=== PATIENT | female | born 1960 | race Caucasian/White ===

== ENCOUNTER 2019-12-04 11:13 | Outpatient (CLI) | payer BC, SELFPAY ==
--- NOTE | 2019-12-04 11:16 | ECG_ITS ---
Measurements Intervals [place] Rate: 77 P: 64 IN: 177 QRS: 47 QRSD: 85 T: 59 QT: 377 QTc: 429 Interpretive Statements SINUS RHYTHM BASELINE ARTIFACT- I, II, III, AVR, AVL, AVF BORDERLINE ECG Electronically Signed On 12-04-2019 11:40:59 SALES FLOOR ASSOCIATE by Ankush Otto D.O.
== END 2019-12-04 11:14 | disposition home or self-care (01) ==
LOC: ANHSURGERY 11:16
PROVIDERS: PCP Nurse Practitioner Family; Visit Provider Surgery
DX: I10 Essential (primary) hypertension (principal); K40.90 Unilateral inguinal hernia, without obstruction or gangrene, not specified as recurrent; R94.31 Abnormal electrocardiogram [ECG] [EKG]
CPT/HCPCS: 36415; 86850; 86900; 86901; 93005

== ENCOUNTER 2019-12-19 01:06 | Day surgery (SDC) | payer BC, SELFPAY ==
[2019-11-28 12:49] VITALS: BMI 28.3
[2019-12-19] VITALS (10 sets, daily range): BP systolic 130–140; BP diastolic 71–87; PULSE 76–97; RESP 12–20; TEMP 36.2–36.5; O2SAT 92–100
--- NOTE | 2019-12-19 08:26 | WPDANESEPP ---
Anes - Eval Pre Procedure Procedure: Operation Date: 12/19/19 10:30 Proposed Procedures p Laparoscopic Left Inguinal Hernia Repair with Mesh, Davinci Assisted - Victor Hugo Smith DO Date/Time: 12/19/19 08:26 Surgeon: Martín Smith Pre Op Diagnosis: Left Inguinal Hernia Patient Data Age: 59 Gender: F Height: 5 ft 3 in Weight: 72.57 kg Allergies Allergy/AdvReac Type Severity Reaction Status Date / Time levofloxacin Allergy Unknown VOMITING Verified 11/28/19 12:50 Home Medications Medication Instructions Recorded Confirmed Type lisinopril 10 mg tablet 10 mg PO DAILY 10/23/19 11/28/19 History Vitamin D3 1 tablet PO DAILY 11/28/19 11/28/19 History albuterol sulfate 2.5 mg INHALATION Q6H PRN 11/28/19 11/28/19 History cyanocobalamin (vitamin B-12) 1,000 mcg PO DAILY 11/28/19 11/28/19 History [Vitamin B-12] EC12/04/19 SR rate 77 : patient denies (s/p hysterectomy) Patient hx anesthesia problems: none Family hx anesthesia problems: none PMFSH Past Medical History Medical History (Updated 12/19/19 @ 08:26 by Katty Harvey CRNA) Anxiety History of blood transfusion History of kidney stones History of ovarian cyst HTN (hypertension) Migraines Mitral valve prolapse Osteoarthritis Overweight (BMI 25.0-29.9) Plantar fascia syndrome Surgical History Surgical History (Updated 12/19/19 @ 08:26 by Katty Harvey CRNA) H/O ovarian cystectomy X 3 History of endometrial ablation History of hysterectomy Social History Social History Smoking status: Never smoker Alcohol intake: never Exam Day of Procedure 12/19/19 08:26
--- NOTE | 2019-12-19 09:09 | WPDANESEFPP ---
Anes - Eval Final PreProcedure Day of Procedure 12/19/19 09:09 Patient weight: overweight Heart: regular rate and rhythm Lungs: clear to auscultation Airway: Mallampati scale class II Neurological: alert and oriented Last oral intake: >/= 8 hours ASA classification: III Emergent: no Anesthetic plan: proceed Anesthesia type and monitoring: general ETT and standard monitoring Informed Consent: The patient's anesthetic plan and its attendant risks and benefits were discussed with the patient/family/POA. Questions were solicited and answers provided to the satisfaction of the patient/family/POA.
[2019-12-19] MEDS: LACTATED RINGERS 1,000 ML 30 ML IV CONT ×3 (09:20→14:52)
--- NOTE | 2019-12-19 10:06 | PM.IMHP ---
H&P: HPI History of Present Illness Chief complaint: Left Inguinal Hernia Narrative: Emy Ruano is a 59 year old female who presents with left groin pain for the past several months. She has also been recently experiencing some right groin pain, but does not notice a bulge. A CT of her abdomen and pelvis had been performed and this showed evidence of a left inguinal hernia. She also has a recent finding of a coagulopathy that has been treated by Dr. Barber. She now presents for elective hernia repair. Review of Systems Review of Systems: All systems reviewed & are unremarkable except as noted in HPI and below PMFSH Past Medical History Medical History Anxiety History of blood transfusion History of kidney stones History of ovarian cyst HTN (hypertension) Migraines Mitral valve prolapse Osteoarthritis Overweight (BMI 25.0-29.9) Plantar fascia syndrome Surgical History Surgical History H/O ovarian cystectomy X 3 History of endometrial ablation History of hysterectomy Family History Family History Father Heart disease Stage 4 chronic kidney disease Mother Diabetes mellitus Heart disease Unknown Diabetes mellitus Heart disease Cerebrovascular accident Kidney disorder Social History Social History Smoking status: Never smoker Alcohol intake: never Meds Home Medications and Allergies Home Medications Medication Instructions Recorded Confirmed Type lisinopril 10 mg tablet 10 mg PO DAILY 10/23/19 12/19/19 History Vitamin D3 1 tablet PO DAILY 11/28/19 12/19/19 History albuterol sulfate 2.5 mg INHALATION Q6H PRN 11/28/19 12/19/19 History cyanocobalamin (vitamin B-12) 1,000 mcg PO DAILY 11/28/19 12/19/19 History [Vitamin B-12] Allergies Allergy/AdvReac Type Severity Reaction Status Date / Time levofloxacin Allergy Unknown VOMITING Verified 12/19/19 08:59 Vital Signs Vital Signs - 24 hr 12/19/19 09:22 Temperature 36.5 C Pulse Rate 76 Respiratory Rate 20 Blood Pressure 130/76 Pulse Oximetry 100 Exam Const: General: no acute distress Eyes: General: appearance normal, both eyes and all related structures Neck: Neck: supple and no JVD Resp: Effort & Inspection: normal respiratory effort Auscultation: clear to auscultation bilaterally Cardio: Rate: regular rate Rhythm: regular rhythm GI: GI Palp: Yes Soft to palpation, No Tenderness to palpation present (GI) and No Guarding due to palpation present (GI) Other: Small reducible left inguinal hernia, no palpable right inguinal hernia Assessment and Plan Assessment and plan (1) Inguinal hernia of left side without obstruction or gangrene: Code(s): K40.90 - Unilateral inguinal hernia, without obstruction or gangrene, not specified as recurrent Status: Acute Assessment and Plan: I have recommended laparoscopic left inguinal hernia repair with mesh, da Yas assisted. I have discussed the procedure, risks, benefits, and alternatives with the patient. All questions answered. No changes since last seen in office.
[2019-12-19] MEDS: ceFAZolin 2 GM/D5W 50 ML 2 GM/50 ML BAG IVPB (10:32)
[2019-12-19] MEDS: BUPIVACAINE/EPINEPHRINE 0.5% 30 ML VIAL INFILTRATE (10:34)
--- NOTE | 2019-12-19 11:29 | SUR.OPER ---
PRO GYMNASIUM TEACHER MESH LOT [id number], EXP 2022-09-06M LEFT, PRO GYMNASIUM TEACHER MESH LOT [id number], EXP 2022-08-06 RIGHT INGUINAL HERNIAS. DIPPED IN NS PRIOR TO INSERTION.
--- NOTE | 2019-12-19 12:34 | PM.PROC ---
Procedure Note - Detailed Date of procedure: 12/19/19 Pre-op diagnosis: Left Inguinal Hernia Post-op diagnosis: other (Bilateral inguinal hernia) Procedure performed: Laparoscopic bilateral inguinal hernia repair with Progrip mesh, da Yas assisted Description of procedure: Procedure as well as risks, benefits, and alternatives were discussed with the patient. Written consent was obtained and placed in chart prior to procedure. Patient was brought back to surgical suite. She was placed supine on operating table. Time-out was done to confirm patient and procedure. She was then intubated by Anesthesia Department. Her abdomen was prepped and draped in sterile fashion using chlorhexidine prep. 0.5% bupivacaine with epinephrine was infiltrated at each location for incision. A 12 millimeter transverse incision was made just superior to the umbilicus using a 15 blade scalpel. Blunt dissection was carried out down to the linea alba. A vertical incision was made at the linea alba using a 15 blade scalpel. The peritoneum was then bluntly entered. A 12 millimeter trocar was inserted and carbon dioxide insufflation was used to create a pneumoperitoneum. A camera was inserted and the abdominal cavity was inspected. The patient was placed in slight Trendelenburg position. An 8 millimeter incision was made on the right lateral abdomen and an 8 millimeter trocar was inserted under direct visualization. Another 8 millimeter incision was made in the left lateral abdomen and an 8 millimeter trocar was inserted under direct visualization. The robotic arms were brought up to the patient's bedside and secured to the ports. The camera and instruments were inserted. I then moved over to the robotic console and took control of the camera and instruments. After careful inspection of the abdominal cavity, I began scoring the peritoneum along the left lower quadrant using scissors with electrocautery. The preperitoneal plane was entered and this was carefully dissected caudally along the inferior epigastric vessels. Careful dissection with scissors with electrocautery and blunt dissection was used to continue this dissection. I dissected far enough laterally to allow for mesh placement, and also dissected medially to identify the pubic arch and Viet's ligament. The hernia sac was identified and carefully dissected posteriorly. The cord contents were also identified and the peritoneum was carefully dissected far enough posteriorly to allow for mesh placement. Once an adequate pocket was created, I then placed the mesh within the preperitoneal pocket and carefully unfolded it. The mesh was centered on the hernia defect with adequate overlap circumferentially. The inferior edge of the mesh was inspected to ensure that it was far enough away from the peritoneal edge. The mesh appeared in proper position overlying the entire myopectineal orifice. The peritoneum was then closed over the mesh using a 3-0 V-lock running absorbable suture. I then began scoring the peritoneum along the right lower quadrant using scissors with electrocautery. The preperitoneal plane was entered and this was carefully dissected caudally along the inferior epigastric vessels. Careful dissection with scissors with electrocautery and blunt dissection was used to continue this dissection. I dissected far enough laterally to allow for mesh placement, and also dissected medially to identify the pubic arch and Viet's ligament. The hernia sac was identified and carefully dissected posteriorly. The cord contents were also identified and the peritoneum was carefully dissected far enough posteriorly to allow for mesh placement. Once an adequate pocket was created, I then placed the mesh within the preperitoneal pocket and carefully unfolded it. The mesh was centered on the hernia defect with adequate overlap circumferentially. The inferior edge of the mesh was inspected to ensure that it was far enough away from
== END 2019-12-19 16:20 | disposition home or self-care (01) ==
PROVIDERS: PCP Nurse Practitioner Family; Visit Provider Surgery
PROC: 8E0Y4CZ Robotic Assisted Procedure of Lower Extremity, Percutaneous Endoscopic Approach (ICD-10-PCS; CPT 49650; principal; 2019-12-19 10:30)
DX: K40.20 Bilateral inguinal hernia, without obstruction or gangrene, not specified as recurrent (principal); I10 Essential (primary) hypertension; I34.1 Nonrheumatic mitral (valve) prolapse; M19.90 Unspecified osteoarthritis, unspecified site; F41.9 Anxiety disorder, unspecified
CPT/HCPCS: 49650; S2900; 36415; 86850; 86900; 86901; A9270; C1781; J0131; J0690; J1100; J2250; J2370; J2405; J2710; J3010; J7030; J7120

== ENCOUNTER 2020-10-17 11:34 | Emergency (ER) | payer OTHER, SELFPAY ==
--- NOTE | ~2020-10-17 | CT_ITS ---
EXAMINATION: CT brain wo con DATE: 10/17/2020 13:14 INDICATION: Right-sided forehead swelling TECHNIQUE: Computed tomography (CT) of the head was performed without intravenous contrast. The mA wa s adjusted according to patient size. Iterative reconstruction technique was employed. Exam dose: 60 5.33 mGy-cm total exam DLP. COMPARISON: 01/26/2013 CT brain FINDINGS: Examination is mildly limited by motion artifact. No intracranial mass lesion or hemorrhage or cerebrovascular accident is evident. There is no midline shift or mass effect. Normal ventricular size. No fracture or bone destruction of the cranial vault. IMPRESSION: No significant abnormality Reviewed, dictated and finalized at [facility] Reviewed, dictated and finalized at [facility]. RUCTIONAL COACH IMPRESSION: No significant abnormality
--- NOTE | ~2020-10-17 | CT_ITS ---
EXAMINATION: CT facial bones w con DATE: 10/17/2020 13:26 INDICATION: Right facial cellulitis TECHNIQUE: Computed tomography (CT) of the facial bones and maxillofacial region was performed withou t intravenous contrast. Automated exposure control and iterative reconstruction technique were employ ed. Exam dose: 303.42 mGy-cm total exam DLP. 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 The upper teeth are otherwise absent bilaterally. There is moderate mucoperiosteal thickening of the right maxillary sinus and right sphenoid sinus, mi ld mucoperiosteal thickening of the left maxillary and sphenoid sinuses. There is patchy opacification of the mid to posterior ethmoid air cells bilaterally. The mastoid air cells are normally developed and aerated bilaterally. No facial fracture or bone destruction is evident. No fracture or dislocation of the mandible. No periapical abscess of the remaining mandibular teeth. The parotid and submandibular glands appear normal.. No cervical mass lesion or lymphadenopathy or ab scess is detected. The orbital contents appear normal. 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 Reviewed, dictated and finalized at [facility]. 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
[2020-10-17 11:41] VITALS: BP 129/86; PULSE 86; RESP 18; TEMP 36.2; O2SAT 98
--- NOTE | 2020-10-17 11:47 | ECG_ITS ---
Measurements Intervals [place] Rate: 64 P: 60 AK: 179 QRS: 47 QRSD: 102 T: 54 QT: 385 QTc: 399 Interpretive Statements SINUS RHYTHM NORMAL ECG Electronically Signed On 10-17-2020 12:55:14 COMMERCIAL LINES ACCOUNT EXECUTIVE by Ankush Otto D.O.
[2020-10-17 12:20] LABS: Basophils Absolute Auto 0.1 K/mm3 (0.0-0.1); Basophils Percent Auto 1.1 % (0.2-1.2); Eosinophils Absolute Auto 0.2 K/mm3 (0-0.3); Eosinophils Percent Auto 3.2 % (0-4.4); Hematocrit 42.1 % (37.0-47.0); Hemoglobin 13.9 g/dL (12.0-15.0); Immature Granulocyte Absolute 0.02 K/mm3 (0.00-0.031); Immature Granulocyte Percent A 0.4 % (0-0.5); Lymphocytes Absolute Auto 1.35 K/mm3 (0.9-3.2); Lymphocytes Percent Auto 23.9 % (18.3-44.2); Mean Corpuscular Hemoglobin 29.3 pg (26-34); Mean Corpuscular Volume 88.8 fl (80-100); Mean Platelet Volume 9.1 fl (7.4-10.4); Monocytes Absolute Auto 0.7 K/mm3 (0.1-0.6); Monocytes Percent Auto 12.2 % (2.6-8.5); Neutrophils Absolute Auto 3.4 K/mm3 (1.3-6.7); Neutrophils Percent Auto 59.2 % (45.5-73.1); Platelet Count Result 237 k/mm3 (150-375); Red Blood Count 4.74 M/mm3 (4.2-5.4); Red Cell Distribution Width 13.5 % (11.5-14.5); White Blood Count 5.7 K/mm3 (4.5-10.0)
[2020-10-17 12:31] LABS: Acetaminophen < 10 ug/mL (10-30); Ethanol < 10 mg/dL (<10); Salicylate < 1.0 mg/dL (2-20)
[2020-10-17 12:32] LABS: Alanine Aminotransferase 44 U/L (4-35); Albumin Level 4.6 g/dL (3.5-5.1); Alkaline Phosphatase 72 U/L (38-126); Anion Gap 7 mmol/L (8-16); Aspartate Amino Transferase 41 U/L (14-36); Bilirubin,Total 0.5 mg/dL (0.2-1.3); Blood Urea Nitrogen 18 mg/dL (7-17); Calcium 9.7 mg/dL (8.4-10.2); Carbon Dioxide 29 mmol/L (22-30); Chloride 103 mmol/L (98-107); Estimated CRCL calculation 65 ml/min; Estimated Glomerular Filt Rate > 60; Glucose 71 mg/dL (65-105); Potassium 4.4 mmol/L (3.4-5.0); Sodium 139 mmol/L (137-145)
[2020-10-17 12:48] LABS: Add Urine Microscopic? NO; Appearance Urine Clear (Clear); Bacteria Urine Trace /hpf; Bilirubin Urine Negative (Negative); Blood Urine Negative (Negative); Color Urine Straw (Yellow); Glucose Urine UA Negative (Negative); Ketones Urine Negative (Negative); Leukocyte Esterase Ur Negative LEU/UL (Negative); Mucus Urine Rare /lpf; Nitrate Urine Negative (Negative); Protein Urine Negative (Negative); RBC Urine 0-2 /hpf (0-2); Specific Grav Ur 1.017 (1.001-1.035); Squamous Epithelial Cell Urine Few /hpf (Few); Urobilinogen Urine Negative mg/dL (<2.0); WBC Urine 0-3 /hpf
[2020-10-17 12:57] LABS: Amphetamine Screen Urine Negative (Negative); Barbiturate Screen Urine Negative (Negative); Benzodiazepines Screen Urine Negative (Negative); Cannabinoid Screen Urine Negative (Negative); Cocaine Screen Urine Negative (Negative); Methadone Screen Urine Negative (Negative); Opiate Screen Urine Negative (Negative); Phencyclidine Screen Urine Negative (Negative)
--- NOTE | 2020-10-17 13:05 | ED.GENADULT ---
HPI - General Adult General Chief complaint: Unspecified Stated complaint: right sided facial swelling Time Seen by Provider: 10/17/20 12:13 Source: patient and family Mode of arrival: ambulatory Limitations: no limitations History of Present Illness HPI narrative: Patient been complaining of a lump at the right forehead which is tender for the last 2 weeks. Was seen by her family physician recently and started on Keflex. Last night noticed swelling of the right face, got worse this morning. Currently patient complaining of headache. Denies any fever, chills, nausea, vomiting, trouble swallowing or breathing. Patient denies similar history. Patient denies any itching or burning sensation of the face. Related Data Home Medications Medication Instructions Recorded Confirmed lisinopril 10 mg tablet 10 mg PO DAILY 10/23/19 01/11/20 Vitamin D3 1 tablet PO DAILY 11/28/19 01/11/20 albuterol sulfate 2.5 mg INHALATION Q6H PRN 11/28/19 01/11/20 cyanocobalamin (vitamin B-12) 1,000 mcg PO DAILY 11/28/19 01/11/20 [Vitamin B-12] rosuvastatin mg 10/17/20 Allergies Allergy/AdvReac Type Severity Reaction Status Date / Time levofloxacin Allergy Unknown VOMITING Verified 10/17/20 11:41 Review of Systems Review of Systems: Narrative: CONSTITUTIONAL: Denies fever, chills, or sweats. EYES: Denies visual changes, redness, or discharge. ENT: Denies rhinorrhea, congestion, sore throat, or otalgia. CARDIOVASCULAR: Denies chest pain, palpitations, or edema. RESPIRATORY: Denies cough or dyspnea. GASTROINTESTINAL: Denies abdominal pain, nausea, vomiting, or diarrhea. GENITOURINARY: Denies dysuria or hematuria. SKIN: Denies rash or itching. MUSCULOSKELETAL: Denies back pain, joint pain, or myalgia. NEUROLOGIC: Denies headache, numbness, or weakness. PSYCHIATRIC: Denies anxiety or depression. [facility] Past Medical History Medical History (Updated 10/17/20 @ 14:42 by Randy Rader MD) Anxiety History of blood transfusion History of kidney stones History of ovarian cyst HTN (hypertension) Migraines Mitral valve prolapse Osteoarthritis Overweight (BMI 25.0-29.9) Plantar fascia syndrome Surgical History Surgical History H/O ovarian cystectomy X 3 History of endometrial ablation History of hysterectomy Family History Family History Father Heart disease Stage 4 chronic kidney disease Mother Diabetes mellitus Heart disease Unknown Diabetes mellitus Heart disease Cerebrovascular accident Kidney disorder Social History Social History Smoking status: Never smoker Alcohol intake: never Gender identity (if verbalized by the patient): Female Exam Narrative: Exam Narrative: General appearance: Well-developed, well-nourished Skin: Normal color right forehead showed a 1-1/2 x 1 and half centimeter subcutaneous lump, tender, also diffuse tenderness at the right scalp, without any swelling or lesions. Slight swelling of the right face which is not tender, Head: Normocephalic, nontraumatic Eyes: Clear conjunctiva ENT: Oropharynx normal, ears normal, nose normal Neck: Supple, nontender Chest and respiratory: Airway patent, no respiratory distress, no accessory muscle use Heart: Regular rate/rhythm Neurologic: Alert and oriented ?3, FORENSIC MEDICAL EXAMINER is normal as tested, no gross motor deficit Course Course Emergency Course: Stable Vital Signs Vital signs: Vital Signs Temperature 36.2 C L 10/17/20 11:41 Pulse Rate 86 10/17/20 11:41 Respiratory Rate 18 10/17/20 11:41 Blood Pressure 129
[2020-10-17 13:27] LABS: CRP 0.6 mg/dL (<1.0)
[2020-10-17] MEDS: IBUPROFEN 600 MG TABLET PO (13:38)
[2020-10-17] MEDS: ACETAMINOPHEN 325 MG TABLET 650 MG PO (13:39)
[2020-10-17 14:29] LABS: Erythrocyte Sedimentation Rate 17 mm/hr (0-20)
[2020-10-17 15:55] VITALS: BP 114/74; PULSE 85; RESP 16; TEMP 36.6; O2SAT 96
[2020-10-21 11:24] LABS: Estimated CRCL calculation 65 ml/min; Estimated Glomerular Filt Rate > 60
== END 2020-10-17 16:01 | disposition home or self-care (01) ==
PROVIDERS: Emergency Medicine; Emergency Provider Emergency Medicine; PCP Nurse Practitioner Family
DX: R51.9 Headache, unspecified (principal); I10 Essential (primary) hypertension; I34.1 Nonrheumatic mitral (valve) prolapse; M19.90 Unspecified osteoarthritis, unspecified site
CPT/HCPCS: 36415; 70450; 70487; 80053; 80307; 81003; 84443; 85025; 85652; 86140; 93005; 99284; A9270; Q9967

== ENCOUNTER 2022-04-17 09:10 | Emergency (ER) | payer OTHER, SELFPAY ==
[2022-04-17 09:16] VITALS: BP 126/81; PULSE 66; RESP 16; TEMP 36.6; O2SAT 97
--- NOTE | 2022-04-17 09:31 | ED.URI ---
HPI - URI/Sore Throat General Chief Complaint: Upper Respiratory Infection Stated Complaint: sore throat Time Seen by Provider: 04/17/22 09:20 Source: patient and RN notes reviewed History of Present Illness HPI Narrative: Patient is a 61-year-old female who presents the urgent care with complaints of a sore throat and bilateral ear pain. Patient states that sore throat is been for the last 3 days and she will with bilateral ear pain this morning. Patient states that someone in her worship had COVID last weekend. States that she has not taken her at home COVID test but does have them available. Patient denies of any other ill exposures. Denies a fever, nausea or vomiting. No other acute complaints. No acute distress noted. Patient aware of the plan of care. Some parts of this dictation were generated by voice recognition software and may contain typographical and/or grammatical inaccuracies. Related Data Home Medications Medication Instructions Recorded Confirmed lisinopril 10 mg tablet 10 mg PO DAILY 10/23/19 04/17/22 albuterol sulfate 2.5 mg/3 mL 2.5 mg inhalation Q6H PRN 11/28/19 04/17/22 (0.083 %) solution for nebulization Shortness Of Breath Or Wheezing cyanocobalamin (vitamin B-12) 1,000 mcg PO DAILY 11/28/19 04/17/22 1,000 mcg tablet (Vitamin B-12) rosuvastatin 5 mg tablet 5 mg PO DAILY 10/17/20 04/17/22 cholecalciferol (vitamin D3) 125 125 mcg PO DAILY 04/17/22 04/17/22 mcg (5,000 unit) tablet (Vitamin D3) fexofenadine 180 mg tablet 180 mg PO DAILY 04/17/22 04/17/22 Allergies Allergy/AdvReac Type Severity Reaction Status Date / Time levofloxacin AdvReac Intermediate VOMITING Verified 04/17/22 09:29 Review of Systems Review of Systems: CONSTITUTIONAL: Denies fever, chills, or sweats. EYES: Denies visual changes, redness, or discharge. ENT: Reports of sore throat and bilateral otalgia CARDIOVASCULAR: Denies chest pain, palpitations, or edema. RESPIRATORY: Denies cough or dyspnea. GASTROINTESTINAL: Denies abdominal pain, nausea, vomiting, or diarrhea. GENITOURINARY: Denies dysuria or hematuria. SKIN: Denies rash or itching. MUSCULOSKELETAL: Denies back pain, joint pain, or myalgia. NEUROLOGIC: Denies headache, numbness, or weakness. All other systems reviewed are negative, except as documented in HPI. [facility] Past Medical History Medical History (Updated 04/17/22 @ 09:44 by ISABELA Martin) Anxiety History of blood transfusion History of kidney stones History of ovarian cyst HTN (hypertension) Migraines Mitral valve prolapse Osteoarthritis Overweight (BMI 25.0-29.9) Plantar fascia syndrome Surgical History Surgical History H/O ovarian cystectomy X 3 History of endometrial ablation History of hysterectomy Family History Family History Father Heart disease Stage 4 chronic kidney disease Mother Diabetes mellitus Heart disease Unknown Diabetes mellitus Heart disease Cerebrovascular accident Kidney disorder Social History Social History Smoking status: Never smoker Alcohol intake: never Gender identity (if verbalized by the patient): Female Comments At the time of my signature, I reviewed and agree with the nursing past medical, surgical, social, and family history. There is no relevant family history pertinent to the patient complaint. Exam Narrative: GENERAL: This is a well-nourished, well-developed patient, in no apparent distress. HEAD: normocephalic, atraumatic. EYES: PERRL. Sclera clear/white. Vision is grossly intact. EARS: External ears normal, auditory canals clear and without drainage, TMs normal without perforation. Hearing grossly intact. NOSE: External nose normal with no obvious nasal discharge, nares without redness, no rhinorrhea. THROAT: Mucous membranes moist, posterior pharynx clear.
== END 2022-04-17 09:45 | disposition home or self-care (01) ==
PROVIDERS: Emergency Provider Nurse Practitioner Family; PCP Nurse Practitioner Family
DX: J02.9 Acute pharyngitis, unspecified (principal); I10 Essential (primary) hypertension; I34.1 Nonrheumatic mitral (valve) prolapse; M19.90 Unspecified osteoarthritis, unspecified site
CPT/HCPCS: 87081; 87880; 99213; G0463

== ENCOUNTER 2023-02-16 08:21 | Emergency (ER) | payer OTHER, SELFPAY ==
[2023-02-16 08:26] VITALS: BP 131/81; PULSE 95; RESP 18; TEMP 37.2; O2SAT 96
--- NOTE | 2023-02-16 08:58 | ED.URI ---
HPI - URI/Sore Throat General Chief Complaint: Upper Respiratory Infection Stated Complaint: flu symptoms/sore throat Time Seen by Provider: 02/16/23 08:59 Source: patient, family and RN notes reviewed Mode of arrival: ambulatory Limitations: no limitations History of Present Illness HPI Narrative: 62 year old female who presents to [facility] with complaints of sore throat, chills, no fevers noted but body aches and headache pain also for the past 2 days. Patient reports tht she did home COVID test last night which was negative. Patient has been taking Tylenol and Ibuprofen for her symptoms. Patient reports that she has not had any known ill contacts. MD elicited complaint: sore throat and other (chills and body aches) Onset (ago): day(s) (2 days) Pain scale (0-10): 8 Treatments prior to arrival: acetaminophen and ibuprofen Related Data Home Medications Medication Instructions Recorded Confirmed lisinopril 10 mg tablet 10 mg PO DAILY 10/23/19 02/16/23 albuterol sulfate 2.5 mg/3 mL 2.5 mg inhalation Q6H PRN 11/28/19 02/16/23 (0.083 %) solution for nebulization Shortness Of Breath Or Wheezing cyanocobalamin (vitamin B-12) 1,000 mcg PO DAILY 11/28/19 02/16/23 1,000 mcg tablet (Vitamin B-12) cholecalciferol (vitamin D3) 125 125 mcg PO DAILY 04/17/22 02/16/23 mcg (5,000 unit) tablet (Vitamin D3) fexofenadine 180 mg tablet 180 mg PO DAILY 04/17/22 02/16/23 pitavastatin calcium 2 mg tablet 2 mg PO DAILY 02/16/23 02/16/23 (Livalo) Allergies Allergy/AdvReac Type Severity Reaction Status Date / Time levofloxacin AdvReac Intermediate VOMITING Verified 02/16/23 08:41 Review of Systems Review of Systems: CONSTITUTIONAL: Reports malaise, chills, sweats, or fever. EYES: Denies visual changes, redness, or discharge. ENT: Reports rhinorrhea, congestion, sinus pain,no otalgia positive sore throat. CARDIOVASCULAR: Denies chest pain, palpitations, or edema. RESPIRATORY: Reports cough.? Denies dyspnea. GASTROINTESTINAL: Denies abdominal pain, nausea, vomiting, diarrhea SKIN: Denies rash or itching. MUSCULOSKELETAL: Reports myalgia. NEUROLOGIC: reports headache. All systems reviewed & are unremarkable except as noted in HPI and below PMFSH Past Medical History Medical History (Updated 02/17/23 @ 00:01 by Bina Linder) Anxiety History of blood transfusion History of kidney stones History of ovarian cyst HTN (hypertension) Migraines Mitral valve prolapse Osteoarthritis Overweight (BMI 25.0-29.9) Plantar fascia syndrome Surgical History Surgical History H/O ovarian cystectomy X 3 History of endometrial ablation History of hysterectomy Family History Family History Father Heart disease Stage 4 chronic kidney disease Mother Diabetes mellitus Heart disease Unknown Diabetes mellitus Heart disease Cerebrovascular accident Kidney disorder Social History Social History (Updated 02/17/23 @ 07:24 by Nadeen García NP) Smoking status: Former smoker Additional smoking assessment comments: quit 1993 Alcohol intake: never Substance use type: does not use Living arrangements: with family Gender identity (if verbalized by the patient): Female Comments At time of signature, agree with nursing past medical, surgical, social and family history. There is no relevant family history pertinent to the presenting complaint Exam Narrative: GENERAL: Well-appearing, well-nourished, and in no acute distress. HEAD: Normocephalic EYES: PERRLA, conjunctivae clear ENT: Nares clear, turbinates edematous and erythematous, clear discharge. Mucous membranes moist. TM pearly velasquez with dull light reflex bilaterally; no tragal tenderness. Oropharynx erythematous without lesions. Tonsils red minimally enlarged and with white lesions left tonsil, no drooling, no hoarseness, no
== END 2023-02-16 09:10 | disposition home or self-care (01) ==
PROVIDERS: Emergency Provider Registered Nurse; PCP Nurse Practitioner Family
DX: J02.0 Streptococcal pharyngitis (principal); I10 Essential (primary) hypertension; Z87.891 Personal history of nicotine dependence
CPT/HCPCS: 87880; 99213; G0463